=== PATIENT | female | born 1955 | race Caucasian/White ===

== ENCOUNTER 2024-01-26 06:48 | Day surgery (SDC) | payer MEDICARE ==
[~2024-01-26] VITALS: Ht 157.5 cm; Wt 66.2 kg
[~2024-01-26 06:48] MED LIST: AMOX500T PO; BERB500C PO; CHEL50TA2 PO; ESOM20CA25 PO; EYECAP2 PO; MAGN400C2 PO; OMEP-173 PO; QUER500C PO; RESV1CAP2 PO; TURM500C PO; VITA500030 PO; VITA500C3 PO; [UNRECOGNIZED DRUG - CODE] PO
[2024-01-26] MEDS ORDERED: LIDOCAINE 2% 100MG/5ML SDV (FOR ANES.) As Ordered ONE (06:53)
[2024-01-26] MEDS: NS 1,000 ML IV ONE (07:06)
[2024-01-26] MEDS ORDERED: propofoL 200 MG/20 ML VIAL As Ordered ONE (07:15)
[2024-01-26] MEDS ORDERED: fentaNYL 100 MCG/2 ML INJECTION As Ordered ONE (07:20)
[2024-01-26 07:48] VITALS: TEMP 97.8
[2024-01-26 08:11] VITALS: BP 130/77; O2SAT 100
== END 2024-01-26 08:16 | disposition home or self-care (01) ==
LOC: M OPP 06:48
PROVIDERS: ATTEND Internal Medicine Gastroenterology
DX: K44.9 Diaphragmatic hernia without obstruction or gangrene (principal); R13.10 Dysphagia, unspecified; R12 Heartburn; Z79.1 Long term (current) use of non-steroidal anti-inflammatories (NSAID); Z79.84 Long term (current) use of oral hypoglycemic drugs; Z79.899 Other long term (current) drug therapy; Z88.5 Allergy status to narcotic agent
CPT/HCPCS: 43235; J3010